=== PATIENT | male | born 1995 | race Caucasian/White ===

== ENCOUNTER 2020-12-15 21:14 | Emergency (ER) | payer MEDICAID, SELFPAY ==
[~2020-12-15] VITALS: Ht 172.7 cm; Wt 68.0 kg
[2020-12-15 21:14] VITALS: BP_SYST 118
--- NOTE | 2020-12-15 21:14 | NUR ---
Placed in room 06. To gown for exam. Report given to Jodi RN
--- NOTE | 2020-12-15 21:14 | NUR ---
Came in ER this 25 year old, male, brought by paramedics from [facility] on 5250 hold, AAOX1, breathing spontaneously at room air, not in distress noted. With chief complaints of poor oral intake today, only took 2 bites for dinner as per the paramedics report. Known with Depression on Risperidone, no other medical/ no surgical history. Refused to place in bed, Safety measures in place with sitter at bedside. initial vital signs taken and recorded, stable. Denies suicidal/homicidal ideation.
--- NOTE | 2020-12-15 21:24 | NUR ---
sheyla Samano, sent from [facility]
--- NOTE | 2020-12-15 21:30 | NUR ---
Seen and examined by Dr. Inman, ER attending.
[2020-12-15] MEDS ORDERED: D5NS 1,000 ML IV ONE ×2 (21:45)
--- NOTE | 2020-12-15 21:50 | NUR ---
# 20 gauge angiocath placed to LEFT antecubital vein. Use of asceptic technique. Opsite placed over site. Blood return noted. Blood for lab drawn from site. Flushed with 10 cc of normal saline. No evidence of infiltration noted. Patient tolerated well.
--- NOTE | 2020-12-15 22:15 | NUR ---
Apparently patient became agitated and wanted to remove the IV cannula, above IV fluid completed with the use of pressure bag. IV cannula removed and dressing applied, no bleeding noted
[2020-12-15 22:25] LABS: ANION GAP 11 (5-15); CALCIUM 9.9 mg/dL (8.4-11.0); CHLORIDE 103 mmol/L (98-107); CREATININE 1.02 mg/dL (0.55-1.30); GLUCOSE 100 mg/dL (70-99); POTASSIUM 5.1 mmol/L (3.5-5.1); SODIUM SERUM 144 mmol/L (136-145); UREA NITROGEN, BLOOD 8 mg/dL (8-21)
[2020-12-15 22:30] LABS: ALANINE AMINOTRANSFERASE 26 U/L (12-78); ALBUMIN 4.3 g/dL (3.4-4.8); ASPARTATE AMINOTRANSFERASE 16 U/L (10-37); TOTAL BILIRUBIN 0.9 mg/dL (0.0-1.0)
[2020-12-15 22:31] LABS: ACETAMINOPHEN < 1 ug/mL (1-30); ALCOHOL, BLOOD < 3 mg/dL (<10); GFR AFRICAN AMERICAN 114 mL/min (>90); HEMATOCRIT 46.3 % (36-54); HEMOGLOBIN 15.6 g/dL (14.0-18.0); MEAN CORPUSCULAR HEMOGLOBIN 29 pg (27-31); MEAN CORPUSCULAR HGB CONC 34 % (32-36); MEAN CORPUSCULAR VOLUME 88 fL (79.0-98.0); PLATELET COUNT (AUTO) 170 K/uL (130-430); RED BLOOD CELL COUNT(AUTO) 5.29 MIL/uL (4.2-6.2); RED CELL DISTRIBUTION WIDTH 14.5 % (9.0-15.0); WHITE BLOOD COUNT (AUTO) 6.4 K/uL (4.8-10.8)
[2020-12-15 22:44] LABS: CHOLESTEROL 160 mg/dL (<200); HDL CHOLESTEROL 76 mg/dL (>45); LDL CHOLESTEROL 77 mg/dL (<100); TRIGLYCERIDES 57 mg/dL (30-150)
--- NOTE | 2020-12-15 23:01 | NUR ---
Re-assesed by Dr. Samson, for discharge and back to [facility]
[2020-12-15 23:33] LABS: BAND % (MANUAL) 1 % (0-6); BASOPHILS % (MANUAL) 0 % (0-2); EOSINOPHILS % (MANUAL) 1 % (0-7); LYMPHOCYTES % (MANUAL) 34 % (20-46); MONOCYTES % (MANUAL) 10 % (0-11)
--- NOTE | 2020-12-16 00:03 | NUR ---
Patient to be transferred back to [facility]. Receiving facility has available space.Copy of nursing notes, lab reports,to be sent with patient. Report called to the nurse Ms Godinez at receiving facility. [facility] has been called for transfer. ETA is 12am.
[2020-12-16 00:21] VITALS: BP_SYST 110
--- NOTE | 2020-12-16 00:21 | NUR ---
Patient given written and verbal discharge instructions and verbalizes understanding. ER MD discussed with patient the results and treatment provided. Patient in stable condition. ID arm band removed. Patient educated to follow up with PMD. Pain Scale 0/10. Opportunity for questions provided and answered.Discharge per Ashley accompanied by [facility] transport personnel back to [facility].
== END 2020-12-16 00:21 ==
LOC: SED 21:14
DX: R63.8 Other symptoms and signs concerning food and fluid intake (principal); F32.9 Major depressive disorder, single episode, unspecified; Z20.822 Contact with and (suspected) exposure to COVID-19
CPT/HCPCS: 36415; 80053; 80061; 83036; 85007; 85027; 87081; 87426; 96360; 99285; G0480; J7060; G0481; G0482